=== PATIENT | female | born 1970 | race Caucasian/White ===

== ENCOUNTER 2017-10-04 11:19 | Outpatient (RCR) | payer BC, SELFPAY | END 2017-10-19 23:59 | LOC: NS 11:19 | PROVIDERS: Family Provider Student in an Organized Health Care Education/Training Program; PCP Student in an Organized Health Care Education/Training Program; Visit Provider Nurse Practitioner Adult Health | DX: Z68.28 Body mass index [BMI] 28.0-28.9, adult (principal); Z71.3 Dietary counseling and surveillance | CPT/HCPCS: 97802 ==

== ENCOUNTER 2017-11-06 11:30 | Outpatient (RCR) | payer BC, SELFPAY | END 2017-11-18 23:59 | LOC: NS 11:30 | PROVIDERS: Family Provider Student in an Organized Health Care Education/Training Program; PCP Student in an Organized Health Care Education/Training Program; Visit Provider Nurse Practitioner Adult Health | DX: E66.9 Obesity, unspecified (principal); Z68.28 Body mass index [BMI] 28.0-28.9, adult; Z71.3 Dietary counseling and surveillance | CPT/HCPCS: 97803 ==

== ENCOUNTER 2017-12-11 11:00 | Outpatient (RCR) | payer BC, SELFPAY | END 2017-12-19 23:59 | LOC: NS 11:00 | PROVIDERS: Family Provider Student in an Organized Health Care Education/Training Program; PCP Student in an Organized Health Care Education/Training Program; Visit Provider Nurse Practitioner Adult Health | DX: E66.9 Obesity, unspecified (principal); Z68.28 Body mass index [BMI] 28.0-28.9, adult; Z71.3 Dietary counseling and surveillance | CPT/HCPCS: 97803 ==

== ENCOUNTER 2018-01-16 09:30 | Outpatient (RCR) | payer BC, SELFPAY | END 2018-01-18 23:59 | LOC: NS 09:30 | PROVIDERS: Family Provider Student in an Organized Health Care Education/Training Program; PCP Student in an Organized Health Care Education/Training Program; Visit Provider Nurse Practitioner Adult Health | DX: E66.9 Obesity, unspecified (principal); Z68.28 Body mass index [BMI] 28.0-28.9, adult; Z71.3 Dietary counseling and surveillance | CPT/HCPCS: 97803 ==

== ENCOUNTER 2018-03-08 11:30 | Outpatient (RCR) | payer BC, SELFPAY ==
[2014-05-29 07:29] VITALS: BMI 27.6
== END 2018-03-21 23:59 ==
LOC: NS 11:30
PROVIDERS: Family Provider Student in an Organized Health Care Education/Training Program; PCP Student in an Organized Health Care Education/Training Program; Visit Provider Nurse Practitioner Adult Health
DX: E66.9 Obesity, unspecified (principal); Z68.28 Body mass index [BMI] 28.0-28.9, adult; Z71.3 Dietary counseling and surveillance
CPT/HCPCS: 97803

== ENCOUNTER 2018-04-12 11:30 | Outpatient (RCR) | payer BC, SELFPAY ==
[2014-05-29 07:29] VITALS: BMI 27.6
== END 2018-04-18 23:59 ==
LOC: NS 11:30
PROVIDERS: Family Provider Student in an Organized Health Care Education/Training Program; PCP Student in an Organized Health Care Education/Training Program; Visit Provider Nurse Practitioner Adult Health
DX: E66.9 Obesity, unspecified (principal); Z68.28 Body mass index [BMI] 28.0-28.9, adult; Z71.3 Dietary counseling and surveillance
CPT/HCPCS: 97803

== ENCOUNTER 2018-05-17 10:31 | Outpatient (RCR) | payer BC, SELFPAY ==
[2014-05-29 07:29] VITALS: BMI 27.6
== END 2018-05-17 23:59 | disposition home or self-care (01) ==
LOC: NS 10:31
PROVIDERS: Family Provider Student in an Organized Health Care Education/Training Program; PCP Student in an Organized Health Care Education/Training Program; Visit Provider Nurse Practitioner Adult Health
DX: E66.9 Obesity, unspecified (principal); Z68.28 Body mass index [BMI] 28.0-28.9, adult; Z71.3 Dietary counseling and surveillance
CPT/HCPCS: 97803

== ENCOUNTER → 2021-06-17 | Outpatient (CLI) | payer BC, SELFPAY ==
--- NOTE | 2021-06-17 12:46 | BI_ITS ---
MAMMOGRAPHY - BILATERAL DIAGNOSTIC REASON FOR EXAM: Female, 50 years old. One-week history of a right breast lump. This is located at the 2 o''clock position of the breasts. PERTINENT HISTORY: Mother with breast cancer. TECHNIQUE: Digital bilateral breast kojo (3D mammographic acquisition) in the CC and MLO projections. 2-D mediolateral oblique (MLO) and craniocaudad (CC) views of both breasts were obtained. CAD: Full Field Digital Mammography with Computer Added Detection was performed. COMPARISON: Comparison is made with prior outside examination dated 12/24/2020. FINDINGS: Breast Composition: The breasts are heterogeneously dense, which may obscure small masses. There are no dominant masses or suspicious calcifications. Stable benign-appearing bilateral axillary lymph nodes. No other significant abnormalities are identified. There has been no significant change since the prior study. BI/DIAG MAMM W/CAD, BILAT IMPRESSION: Stable bilateral diagnostic mammogram. With the patient''s history of a palpable lump in the right breast, correlation with ultrasound is recommended. ASSESSMENT CATEGORY: BIRADS Category 0: Incomplete. Need additional imaging evaluation. A letter regarding these results will be sent to the patient by the facility within 30 days. Approximately 10% of breast cancers are not detected by mammography. A normal mammogram should not delay biopsy of a clinically suspicious abnormality. Electronically Signed: Brad Braga MD at 13:59 EDT ,
--- NOTE | 2021-06-17 12:48 | US_ITS ---
STUDY: ULTRASOUND BREAST - RIGHT REASON FOR EXAM: Female, 50 years old. Palpable lump in the right breast. TECHNIQUE: Axial and longitudinal images of the RIGHT breast were performed with a high resolution ultrasound transducer. # OF IMAGES: 19 COMPARISON: Comparison is made with prior mammogram done earlier today. FINDINGS: RIGHT Breast: The upper inner quadrant of the right breast was examined by ultrasound. There is a 4 mm x 4 mm x 4 mm hypoechoic nodule at the 1 o''clock position breast at 3 cm from the nipple. There is evidence of hemorrhage or infection. A similar type of nodule is seen at the 2 o''clock position of the breast at 3 cm from nipple measuring 5 mm x 5 mm x 5 mm. Tissue diagnosis is recommended. US/Breast Limited Unilateral IMPRESSION: Adjacent well-defined hypoechoic nodules as described. Tissue diagnosis is recommended. ASSESSMENT CATEGORY: BIRADS Category 4: Suspicious - Biopsy Should Be Considered. A letter regarding these results will be sent to the patient by the facility within 30 days. Electronically Signed: Brad Braga MD at 14:02 EDT ,
== END | disposition home or self-care (01) ==
PROVIDERS: PCP Student in an Organized Health Care Education/Training Program; Visit Provider Obstetrics & Gynecology
DX: N63.10 Unspecified lump in the right breast, unspecified quadrant (principal)
CPT/HCPCS: 76642; 77062; 77066; G0279

== ENCOUNTER → 2021-06-22 | Outpatient (CLI) | payer BC, SELFPAY ==
--- NOTE | 2021-06-22 | IMM_PTH ---
PATIENT: WENCESLAO GUAJARDO LOC: U#:[id number] AGE/SX: 50/F ROOM: RE06/22/[address]: Dr. Henna Bowden MD : 1970 BED: DIS: 06/22/2021 SPEC #: [id number] RECD: 06/24/21 10:31 STATUS: ADEN REQ #: [id number] MARY: 06/22/21 00:[address]: Henna Bowden DEPT: IMMUNOHISTOCHEMISTRY RECD BY: Shayla Lozano ENTERED: 06/24/21 10:33 SP TYPE: IMMUNO OTHR DR: Dr. Tez Salazar, Tissues: A - Right breast, NOS B - Right breast, NOS Procedures: SMA (add) CK8 (add) MACRO (add) P53 (add) Vimentin (add) Pankeratin (initial) PHYSICIAN & INSTITUTION [place] [address] SPECIMEN INFORMATION: Tissue Source: A ? Right breast 1 o?clock, B - Right breast 2 o?clock Clinical Info: Right breast mass x2 Specimen Number: [id number] A & B CPT code: 84078 x2, 94523 x10 METHODOLOGY: Deparaffinized sections of prefer/formalin-fixed tissue or PAP/DQ stained slides are incubated with monoclonal/polyclonal antibodies/oligonucleotide probes. Localization is made via biotin free immunoperoxidase method. Appropriate controls are performed and reacted as expected. Results on target cell population are indicated in the following table: RESULTS: ANTIBODY / CLONE RESULT Block A AE1-3 (AE1/AE3/PCK26) negative CK8 (57ckmxH65) negative Vimentin (V9) positive Macro (HAM-56) positive Actin (1A4) positive P53 (DO-7) negative Block B AE1-3 (AE1/AE3/PCK26) negative CK8 (17wtbfH00) negative Vimentin (V9) positive Macro (HAM-56) positive Actin (1A4) positive P53 (DO-7) negative These tests were developed and their performance characteristics determined by [facility]. They may not have been cleared or approved by the U.S. Food and Drug Administration. The FDA has determined that such clearance or approval is not necessary. The above immunohistochemical/dualISH markers are ordered and reviewed by the Pathologist. INTERPRETATION: A. Right breast 1 o?clock, core biopsy: Benign breast tissue. B. Right breast 2 o?clock, core biopsy: Benign breast tissue. AM:john 06/27/2021
--- NOTE | 2021-06-22 | BRBX_PTH ---
PATIENT: WENCESLAO GUAJARDO LOC: U#:[id number] AGE/SX: 50/F ROOM: RE06/22/[address]: Dr. Henna Bowden MD : 1970 BED: DIS: 06/22/2021 SPEC #: [id number] RECD: 06/22/21 12:44 STATUS: ADEN VERONICA #: [id number] MARY: 06/22/21 00:[address]: Henna Bowden DEPT: SURGICAL PATHOLOGY RECD BY: Joshua Bender ENTERED: 06/23/21 07:57 SP TYPE: BREAST BX OTHR DR: Dr. Tez Salazar DO Tissues: A - Right breast, NOS B - Right breast, NOS Procedures: Surgery Specimen Level IV HEADER OPERATION: Ultrasound Guided Right Breast Biopsy/Aspiration PRE-OP DIAGNOSIS: Right Breast mass x2 TISSUE SUBMITTED: A - Right Breast 1 o?clock, B ? Right breast 2 o?clock ISCHEMIC TIME: 1 minute FIXATION TIME: 31.5 hours MICROSCOPIC DIAGNOSIS A. Right breast at 1 o?clock, core biopsy: Consistent with organizing fat necrosis. See comment. B. Right breast at 2 o?clock, core biopsy: Consistent with organizing fat necrosis. See comment. AM:john 06/24/2021 COMMENT A & B. Immunohistochemistry ([id number]) supports the above diagnosis. Case has been reviewed in consultation with Dr. Martinez who concurs with the above diagnosis. IDC:SJ MICROSCOPIC DESCRIPTION Slides are reviewed. GROSS DESCRIPTION A - Received in fixative is one container labeled with the patient's name and designated right breast 1 o?clock. The specimen consists of multiple elongated fragments of ro-yellow fibroadipose tissue that in aggregate measure 1.5 x 0.8 x 0.1 cm. The entire specimen is submitted in one cassette. B - Received in fixative is one container labeled with the patient's name and designated right breast 2 o?clock. The specimen consists of multiple elongated fragments of ro-yellow fibroadipose tissue that in aggregate measure 2 x 1.5 x 0.1 cm. The entire specimen is submitted in one cassette. / IVONNE:john 06/23/2021 TC:5 CPT: 92351 x2
--- NOTE | 2021-06-22 11:39 | US_ITS ---
ULTRASOUND GUIDED CORE BIOPSY REASON FOR EXAM: Female, 50 years old. Right breast mass x 2 PERTINENT HISTORY: Drainage only structure at the 1 o''clock position of the breast. COMPARISON: None. TECHNIQUE: (All elements of maximal sterile barrier technique followed, including US elements as applicable) Under direct sonographic guidance, the surgeon performed drainage a nonstatistically cystic structure IMPRESSION: Ultrasound guided core biopsy of a mass in the RIGHT breast at 1 o''clock position of the right breast without complication. Electronically Signed: Brad rBaga MD at 13:11 EDT , ULTRASOUND GUIDED CORE BIOPSY REASON FOR EXAM: Female, 50 years old. right breast mass x 2 PERTINENT HISTORY: Ultrasound guided drainage of the cystic nodule at the 2 o''clock position of the right breast. COMPARISON: Comparison is made with prior study 06/17/2021. TECHNIQUE: (All elements of maximal sterile barrier technique followed, including US elements as applicable) Under direct sonographic guidance, an incision from drainage of the cystic nodule at the 2 o''clock position of the breast. US/US Breast Biopsy 1st Lesion IMPRESSION: Ultrasound guided core biopsy of a mass in the RIGHT breast at the 2 o''clock position of the breast without complication. Electronically Signed: Brad Braga MD at 13:12 EDT ,
--- NOTE | 2021-06-22 12:21 | PCM.OPRPT ---
Report of Operation Date of Procedure: 06/22/21 Pre-Operative Diagnosis: Right breast mass x2 Post-Operative Diagnosis: Same Surgery/Procedure Performed:: Ultrasound-guided right breast biopsy x 2 Surgeon: Henna Bowden Type of Anesthesia: Local Specimen's removed: 1. Right breast mass 1:00 3 cm from nipple, 2. right breast mass 2:00 3 cm from nipple Estimated Blood Loss (mL): < 10 cc Description of Procedure: Procedure: Right ultrasound-guided core biopsy x2 Indications: 50year-old female with cystic right breast lesions with possible acoustic shadowing --given a BI-RADS 4, mammography did show calcified monge. At 1 and 2:00 in the right breast 3 centimeters from the nipple. Risk benefits were discussed the patient and she elected to proceed with ultrasound guided core biopsy with clip placement Description of procedure: Patient was brought into the ultrasound room in the right breast was marked. A timeout was completed verifying correct patient, procedure, site, specially, prior to beginning procedure. The right breast was prepped and draped in usual sterile fashion and using local anesthesia was obtained with 1% lidocaine with epi. Initially a 2:00 was aspirated only clear fluid obtained however that collapsed cyst did appear hypoechoic thus was decided to biopsy both lesions. Lesions done similarly. The lesion was located with the ultrasound. Small incision was made with 11 blade to introduced the mammotome through the skin. Under ultrasound guidance multiple core samples were obtained using then 13-gauge mammotome and sent in formalin for pathology. The mammotome mammostar clip was placed at 2:00 in the [place] dual ultra ribbon clip at 1:00 was then deployed into the biopsy cavity under ultrasound guidance and a picture was taken. There was a evidence of a small hematoma after the 2:00 biopsy pressure was held. Upon completion procedure hemostasis was obtained and a Steri-Strip and OpSite were placed. Patient was then taken to the mammography suite for clip verification. The clip was verified. The patient tolerated the procedure well and was discharged from the breast imaging department good condition. Complications none
== END | disposition home or self-care (01) ==
PROVIDERS: PCP Student in an Organized Health Care Education/Training Program; Visit Provider Surgery
DX: N63.12 Unspecified lump in the right breast, upper inner quadrant (principal)
CPT/HCPCS: 19083; 19084; 88305; 88341; 88342

== ENCOUNTER → 2022-03-08 | Outpatient (CLI) | payer BC, SELFPAY ==
--- NOTE | 2022-03-08 09:25 | US_ITS ---
STUDY: ULTRASOUND BREAST - RIGHT REASON FOR EXAM: Female, 51 years old. Status post right breast biopsy. TECHNIQUE: Axial and longitudinal images of the RIGHT breast were performed with a high resolution ultrasound transducer. # OF IMAGES: 29 COMPARISON: Comparison is made with prior examination 06/17/2021. FINDINGS: RIGHT Breast: The upper inner quadrant of the right breast was examined with ultrasound. No cysts are seen at this time. US/Breast Limited Unilateral IMPRESSION: No cysts are seen at this time. ASSESSMENT CATEGORY: BIRADS Category 1: Negative. A letter regarding these results will be sent to the patient by the facility within 30 days. Electronically Signed: Brad Braga MD at 14:18 EST ,
== END | disposition home or self-care (01) ==
LOC: OPUS 09:24
PROVIDERS: PCP Student in an Organized Health Care Education/Training Program; Visit Provider Surgery
DX: Z79.890 Hormone replacement therapy (principal); Z92.89 Personal history of other medical treatment; Z98.890 Other specified postprocedural states; R92.8 Other abnormal and inconclusive findings on diagnostic imaging of breast
CPT/HCPCS: 76642

== ENCOUNTER → 2023-07-12 | Outpatient (CLI) | payer BC, SELFPAY ==
--- NOTE | 2023-07-12 12:03 | BI_ITS ---
MAMMOGRAPHY - BILATERAL SCREENING 3-D TOMOSYNTHESIS REASON FOR EXAM: Female, 52 years old. SCREENING PERTINENT HISTORY: No significant family history. TECHNIQUE: 2-D mammograms and 3-D Tomosynthesis of the breast (s) were performed. CAD was performed. COMPARISON: 06/17/2021 FINDINGS: The breast composition is heterogeneously dense that can obscure small breast masses. Scattered benign calcifications are seen. No dense spiculated masses or suspicious microcalcifications are identified. No architectural distortion is identified. There is no skin thickening or retraction. There has been no significant change since the prior study. BI/SCRN MAMM (CAD)W/ERIC BILAT IMPRESSION: No mammographic signs of malignancy. Routine yearly mammograms recommended. ASSESSMENT CATEGORY: BIRADS Category 1: Negative. A letter regarding these results will be sent to the patient by the facility within 30 days. FOLLOW UP RECOMMENDATION: Yearly follow up mammogram recommended. (A) Approximately 10% of breast cancers are not detected by mammography. A normal mammogram should not delay biopsy of a clinically suspicious abnormality. Electronically Signed: Jose Elias Rock MD at 17:27 EDT ,
== END | disposition home or self-care (01) ==
LOC: OPBI 12:01
PROVIDERS: PCP Student in an Organized Health Care Education/Training Program; Visit Provider Student in an Organized Health Care Education/Training Program
DX: Z12.31 Encounter for screening mammogram for malignant neoplasm of breast (principal)
CPT/HCPCS: 77063; 77067

== ENCOUNTER 2023-10-18 12:41 | Emergency (ER) | payer BC, SELFPAY ==
[2023-10-18 12:42] VITALS: BP 159/96; PULSE 92; RESP 16; TEMP 36; O2SAT 99; BMI 29.6
--- NOTE | 2023-10-18 13:28 | CT_ITS ---
STUDY: CT ABDOMEN AND PELVIS WITHOUT CONTRAST REASON FOR EXAM: Female, 53 years old. 2 day history of left flank pain. Frequency. Dysuria. History of kidney stones. RADIATION DOSAGE (If Supplied By Facility): CTDIvol = ( 9.75 ) mGy, DLP = ( 523.61 ) mGycm TECHNIQUE: Transaxial images were obtained from the dome of the diaphragm to the symphysis pubis without oral contrast, and without intravenous contrast. Sagittal and coronal images were reconstructed. Individualized dose optimization techniques were used for this CT. COMPARISON: None. FINDINGS: The visualized lung bases are unremarkable. Mild degree of her coronary artery calcification. There is decreased attenuation of the liver consistent with steatosis. There are surgical clips in the gallbladder fossa consistent with a prior cholecystectomy. Normal spleen. Normal pancreas. Normal bilateral adrenal glands. Small bilateral nonobstructive intrarenal calculi. Mild degree of a left hydronephrosis and hydroureter due to a 5.1 mm calculus in the proximal portion of the left ureter. Left perinephric and periureteric stranding. There is a small hiatal hernia. Normal small intestine. Normal colon. The appendix is visualized and appears normal. There is scattered atherosclerotic calcification of the abdominal aorta, without a demonstrated aneurysm. Normal inferior vena cava. Normal retroperitoneum. A 2 mm calculus is seen in the base of the bladder on the left side suggestive of a recently passed calculus. IUD is seen within the uterus. There is a small umbilical hernia containing fat. Small bilateral inguinal hernias containing fat. Normal osseous structures. CT/Abdomen/Pelvis without Cont IMPRESSION: Small bilateral intrarenal calculi. Left hydronephrosis and hydroureter due to a 5.1 mm within the proximal portion of the left ureter. Left perinephric and periureteric stranding. Fatty infiltration of the liver. Findings suggestive of recently passed 2 mm calculus at the base of the bladder on the left side. Electronically Signed: Brad Braga MD at 14:47 EDT ,
--- NOTE | 2023-10-18 13:28 | ED.VIS.GI ---
HPI HPI - GI History of Present Illness Chief Complaint: Flank Pain Narrative Narrative: 53-year-old female presents with left flank pain/low back pain, nausea, vomiting, and diarrhea since Sunday evening. She states her pain began Sunday, approximately 2 days ago with left low back pain. She experienced nausea and vomiting without any blood in her emesis. She states she powered through the next day on Sunday, yesterday, but has constant left-sided low back pain with questionable radiation. This morning she had a normal bowel movement and loose stool. She denies any fevers or chills. While she denies any dysuria or hematuria, she states that the opening to her urethra feels pressure like she has to go to urinate. No exacerbating or alleviating factors. She does have menstrual periods because she has a Mirena IUD. [facility] Medical History Kidney stone Home Medications ?Medication ?Instructions ?Recorded ?Last Taken ?Type simvastatin 40 mg tablet 40 mg PO QHS 01/31/14 04/19/14 22:00 History triamterene 37.5 1 tab PO DAILY 05/25/14 Unknown History mg-hydrochlorothiazide 25 mg tablet biotin 1 mg capsule 1 mg PO DAILY 06/21/21 Unknown History cholecalciferol (vitamin D3) 50 50 mcg PO DAILY 06/21/21 Unknown History mcg (2,000 unit) capsule multivitamin 1 tab PO DAILY 06/21/21 Unknown History ubidecarenone-omega 3-vit E 25 1 cap PO DAILY 06/21/21 Unknown History mg-150 (90-60) mg-200 unit capsule (Co T-34-Plkmoae E-Fish Oil) ketorolac 10 mg tablet 10 mg PO TID PRN pain 5 days #15 10/18/23 Unknown Rx tabs ondansetron HCl 4 mg tablet 4 mg PO Q8H PRN nausea and 10/18/23 Unknown Rx vomiting 5 days #15 tabs oxycodone-acetaminophen 5 mg-325 1 tab PO Q6H PRN pain 3 days #12 10/18/23 Unknown Rx mg tablet (Percocet) tabs tamsulosin 0.4 mg capsule (Flomax) 0.4 mg PO DAILY #10 caps 10/18/23 Unknown Rx Allergy/AdvReac Type Severity Reaction Status Date / Time No Known Allergies Allergy Verified 10/18/23 12:44 Family History Father Diabetes Heart disease Hypertension High cholesterol Mother High cholesterol Hypertension Surgical History S/P breast biopsy, right History of tubal ligation History of cholecystectomy Social History Smoking Status: Unknown if ever smoked alcohol intake: never substance use type: does not use ROS ROS ED ROS Narrative Constitutional: No fever, no chills. HEENT: No sore throat. No neck pain. No loss of vision. No rhinorrhea. Cardiovascular: No chest pain. No palpitations. No pedal edema. Respiratory: No cough, no shortness of breath. Abdominal: No abdominal pain. Positive nausea and vomiting-resolved. Positive loose stool today. Genitourinary: No dysuria, but feels pressure at urethral opening. No hematuria. Positive left low back pain/flank pain. Musculoskeletal: No myalgias. No arthralgias. Neurologic: No headaches. No dizziness. No lightheadedness. Skin: No rash. No change in color. Psychiatric: No depression. No anxiety. EXAM Physical Exam Narrative Exam Narrative: Afebrile. Vital signs noted. HEENT: Normocephalic. Atraumatic. PERRL, EOMI. Neck soft and supple. No point tenderness or step off. Cardiovascular: Regular rate and rhythm. No murmurs, rubs, or gallops appreciated. Respiratory: No tachypnea. Lungs clear to auscultation bilaterally. Gastrointestinal: Abdomen soft, nontender, with normoactive bowel sounds. No rebound or guarding. No CVA tenderness to percussion, left. Neurological: Awake. Alert. Nonfocal, nonlateralizing. Skin: No rash. Normal color. No pallor. Musculoskeletal: No pedal edema. Full range of motion extremities. Const Vital Signs: 10/18/23 12:42 10/18/23 14:37 Temperature 96.8 F L 96.3 F L Temperature Source Temporal Temporal Pulse Rate 92 70 Respiratory Rate 16 16 Blood Pressure 159/96 H 128/76 H Blood Pressure Mean 117 93 Pulse Ox 99 99 Oxygen Delivery Method Room Air Room Air MDM MDM MDM Narrative Medical decision making narrative: Differential diagnosis includes but not limited to pyelonephritis versus musculoskeletal back pain versus ureterolithiasis. I have low suspicion for diverticulitis or colitis based on her history and physical. She was administered morphine, ondansetron, and a liter of normal saline 1 L intravenously. I do feel CT imaging is indicated. Also, I have low suspicion for ectopic as she has not had menses, but serum will be obtained for imaging purposes. I reviewed her laboratory work and she has slight elevation of her white count of 13.1 which I think is nonspecific, hemoglobin 15.3 which may be hemoconcentration, hematocrit 45.7 with platelet count normal at 316. Potassium slightly low at 3.3 with BUN normal at 11 and creatinine 0.81. Serum test is negative. Urinalysis negative for infection negative ketones. I do not feel antibiotics are indicated. Review of the CT of the abdomen and pelvis without contrast does show a 5.1 mm stone in the left proximal ureter causing hydronephrosis. It does look like she may have passed a 2 mm stone because its at the base of the bladder as well. She had improvement after morphine and ondansetron. She had slight return of pain so she was administered another dose of morphine and ondansetron along with Toradol. At this point in time, I do not feel that she requires admission or antibiotics. Urine culture was sent because of the elevated white count. She will follow-up with urology. I wrote her prescriptions for Percocet, Flomax, Toradol, and ondansetron. Strict return instructions were reviewed and she was told of the possibility of sepsis with infected urine behind the kidney stone/ureteral stone. She should follow-up with urology in the next week. She acknowledges an understanding. Disposition is discharged in stable condition. History & Record Review Discussion w/independent historian: Patient Lab Data Attestation: I reviewed the patient's lab results. Labs: Laboratory Results - last 24 hr 10/18/23 10/18/23 13:00 13:35 WBC 13.1 H RBC 5.30 Hgb 15.3 H Hct 45.7 MCV 86.2 MCH 28.9 MCHC 33.5 RDW Std Deviation 39.4 RDW Coeff of Abrahan 12.7 Plt Count 316 MPV 10.4 Immature Gran % (Auto) 0.300 Neut % (Auto) 62.1 Lymph % (Auto) 29.4 [place] % (Auto) 6.0 Eos % (Auto) 1.4 Baso % (Auto) 0.8 Absolute Neuts (auto) 8.2 H Absolute Lymphs (auto) 3.86 Nucleated RBC % 0 Sodium 136 Potassium 3.3 L Chloride 101 Carbon Dioxide 25.0 Anion Gap 10 BUN 11 Creatinine 0.81 Estim Creat Clear Calc 88.31 Est GFR (MDRD) Af Amer 95 Est GFR (MDRD) Non-Af 79 BUN/Creatinine Ratio 13.5 Glucose 104 Calcium 10.6 H Serum , Qual NEGATIVE Urine Color Yellow Urine Clarity Clear Urine pH 7.0 Ur Specific [place] 1.010 Urine Protein 15 H Urine Glucose (UA) Normal Urine Ketones Negative Urine Occult Blood 50 H Urine Nitrite Negative Urine Bilirubin Negative Urine Urobilinogen Normal Ur Leukocyte Esterase Negative Urine RBC 0-5 SEEN Urine WBC 0 SEEN Ur Squamous Epith Cells 0 SEEN Urine Bacteria 0 SEEN Urine Mucus 0 SEEN Radiography Diagnostic Testing: Clinical Impression(s) from Imaging Studies Abdomen/Pelvis CT 10/18/23 13:28 IMPRESSION: Small bilateral intrarenal calculi. Left hydronephrosis and hydroureter due to a 5.1 mm within the proximal portion of the left ureter. Left perinephric and periureteric stranding. Fatty infiltration of the liver. Findings suggestive of recently passed 2 mm calculus at the base of the bladder on the left side. Electronically Signed: Brad Braga MD at 14:47 EDT , Discharge Plan Triage Chief Complaint: Flank Pain ED Provider: Eliazar Jones Dx/Rx/DC Orders Clinical Impression: Flank pain, acute, Ureteral calculus, left Instructions: ED Kidney Stone with Pain Prescriptions: New oxycodone-acetaminophen [Percocet] 5-325 mg tablet 1 tab PO Q6H PRN (Reason: pain) 3 Days Qty: 12 0RF ketorolac 10 mg tablet 10 mg PO TID PRN (Reason: pain) 5 Days Qty: 15 0RF Rx Instructions: maximum total duration of 5 days from all oral, intranasal, or parenteral formulations tamsulosin [Flomax] 0.4 mg capsule 0.4 mg PO DAILY Qty: 10 0RF ondansetron HCl 4 mg tablet 4 mg PO Q8H PRN (Reason: nausea and vomiting) 5 Days Qty: 15 0RF No Action Co [id number]-Tyszuvh E-Fish Oil 25-150-200 mg-mg-unit capsule 1 cap PO DAILY cholecalciferol (vitamin D3) 50 mcg (2,000 unit) capsule 50 mcg PO DAILY multivitamin Tablet 1 tab PO DAILY biotin 1 mg capsule 1 mg PO DAILY simvastatin 40 MG tablet 40 mg PO QHS Patient Comments: cholestrol triamterene-hydrochlorothiazid 1 EACH tablet 1 tab PO DAILY Patient Comments: Primary Care Provider: Tez Salazar Referrals: Ree oLpez MD [Med Staff - Active Staff] - 3-5 Days Tez Salazar DO [Primary Care Provider] - Nam Chan MD [Med Staff - Active Staff] - 3-5 Days Activity Restrictions/Additional Instructions: Return with fever, increased pain, inability to take medications, new or worsening symptoms. Follow-up with urology within the next week. Print Language: [place] Disposition Disposition: Home, Self Care
[2023-10-18] MEDS: Ondansetron 4 MG/2 ML Vial IV ×2 (13:43→15:21)
[2023-10-18] MEDS: Morphine 4 MG/ML Syringe IV ×2 (13:43→15:25)
[2023-10-18 13:50] LABS: Bacteria 0 SEEN /hpf (None Seen); Mucous, Urine 0 SEEN /hpf (<or=2+); Squamous Epithelial Cells - UA 0 SEEN /hpf (5-10); White Blood Cells 0 SEEN /hpf (0-5)
[2023-10-18 13:52] LABS: Absolute Lymphocyte Count 3.86 X10^3/uL (0.83-4.51); Absolute Neutrophil Count 8.2 X10^3/uL (2.0-7.7); Basophil% 0.8 % (0-1); Eosinophil# 0.19 X10^3/uL; Eosinophils% 1.4 % (0-5); Hematocrit 45.7 % (37-47); Hemoglobin 15.3 g/dL (12.0-15.0); Lymphocyte # 3.86 X10^3/ul (0.83-4.51); Lymphocyte % 29.4 % (19-41); Mean Corp Hgb Conc 33.5 g/dL (32-36); Mean Corpuscular Hgb 28.9 pg (27.0-32.0); Mean Corpuscular Volume 86.2 fL (81-99); Mean Platelet Vol. 10.4 fl (6.2-12.0); Monocyte# 0.79 X10^3/uL; NRBC Flagged by Analyzer 0 % (0-5); Neutrophil # 8.16 X10^3/uL (2.7-7.7); Neutrophil % 62.1 % (47-70); Platelet Count 316 K/mm3 (150-450); RBC Distribution Width CV 12.7 % (11.6-14.6); RBC Distribution Width SD 39.4 fl (35.1-43.9); White Blood Count 13.1 K/mm3 (4.4-11.0)
[2023-10-18 14:00] LABS: Color, Urine Yellow (Yellow); Glucose, Dipstick Normal (Normal); Ketone-Dipstick Negative (Negative); Leukocyte Esterase-Dipstick Negative /ul (Negative); Nitrite-Dipstick Negative (Negative); Occult Blood-Urine 50 /ul (Negative); Protein-Dipstick 15 mg/dl (Negative); Urine Bilirubin Dipstick Negative (Negative); Urine Clarity Clear (Clear); Urine Urobilinogen Normal (Normal)
[2023-10-18 14:04] LABS: Anion Gap 10 (5-15); BUN 11 mg/dL (7-18); BUN/Creat Ratio 13.5 RATIO (10-20); Calcium,Total 10.6 mg/dL (8.5-10.1); Chloride 101 mmol/L (98-107); Creatinine, Serum 0.81 mg/dL (0.55-1.02); EST Glomerular Filtration Rate 79 mL/min (>60); Est Glom Filt Rate - Afr Amer 95 mL/min (>60); Estimated Creatinine Clearance 88.31 ml/min; Glucose 104 mg/dL (74-106); Internal QC Validated? YES +Cl - CLEAR BKGD; Potassium 3.3 mmol/L (3.5-5.1); Pregnancy, Serum, hCG Quali. NEGATIVE Negative; Sodium Level 136 mmol/L (136-145)
[2023-10-18 14:12] LABS: Red Blood Cells-Urine 0-5 SEEN /hpf (0-5)
[2023-10-18 14:37] VITALS: BP 128/76; PULSE 70; RESP 16; TEMP 35.7; O2SAT 99
[2023-10-18] MEDS: Ketorolac 30 MG/ML Syringe IV (15:24)
[2023-10-18 15:47] VITALS: BP 154/88; PULSE 88; RESP 16; TEMP 36.8; O2SAT 99
== END 2023-10-18 15:55 | disposition home or self-care (01) ==
PROVIDERS: Emergency Provider Emergency Medicine; PCP Student in an Organized Health Care Education/Training Program; Visit Provider Emergency Medicine
DX: N13.2 Hydronephrosis with renal and ureteral calculous obstruction (principal); R10.9 Unspecified abdominal pain; Z98.51 Tubal ligation status; Z90.49 Acquired absence of other specified parts of digestive tract
CPT/HCPCS: 74176; 80048; 81001; 84703; 85025; 87086; 96374; 96375; 96376; 99283; J7050; A4216; J2405

== ENCOUNTER → 2023-10-29 | Outpatient (CLI) | payer BC, SELFPAY ==
--- NOTE | 2023-10-29 | CALC_PTH ---
PATIENT: WENCESLAO GUAJARDO LOC: [facility] U#:[id number] AGE/SX: 53/F ROOM: RE10/29/[address]: Dr. Nam Chan MD : 1970 BED: DIS: 10/29/2023 SPEC #: [id number] RECD: 10/29/23 14:52 STATUS: ADEN REEvan #: [id number] MARY: 10/29/23 00:[address]: Nam Chan DEPT: SURGICAL PATHOLOGY RECD BY: Joshua Bender ENTERED: 10/30/23 10:15 SP TYPE: Calculi OTHR DR: Dr. Tez Salazar, [facility] Tissues: CALCULI Procedures: Surgery Specimen Level I HEADER OPERATION: Left ureteroscopy with lithotripsy PRE-OP DIAGNOSIS: Calculus of ureter TISSUE SUBMITTED: Renal calculi GROSS DIAGNOSIS A fragment of stone, clinically renal calculus (gross only). IVONNE/ 10/30/2023 COMMENT The calculus is submitted in its entirety for chemical stone analysis. The results from this study will be reported separately. GROSS DESCRIPTION Received without fixative labeled with the patient's name and designated renal calculi. The specimen consists of a fragment of ro-light brown stone measuring 0.3 x 0.2 x 0.1 cm. The entire specimen is submitted for stone analysis. IVONNE/ 10/30/2023 CPT: 78482
[2023-11-09 01:07] LABS: Ca Oxalate, Dihydrate 20 % (.); Ca Oxalate, Monohydrate 75 % (.); Calcium Phosphate (hydroxyl) 5 % (.); Size 2x2 mm (.); Source Kidney (.)
== END | disposition home or self-care (01) ==
LOC: LABSPEC 15:01
PROVIDERS: PCP Student in an Organized Health Care Education/Training Program; Referring Provider Urology; Visit Provider Urology
DX: N20.1 Calculus of ureter (principal)
CPT/HCPCS: 82360; 88300

== ENCOUNTER 2023-11-02 09:25 | Emergency (ER) | payer BC, SELFPAY ==
[2023-11-02] VITALS (9 sets, daily range): BP systolic 129–192; BP diastolic 77–119; PULSE 80–106; RESP 12–22; TEMP 36.3–36.8; O2SAT 94–100
--- NOTE | 2023-11-02 09:32 | EKG12_ITS ---
Test Reason : SOB Blood Pressure : / mmHG Vent. Rate : 091 BPM Atrial Rate : 091 BPM P-R Int : 156 ms QRS Dur : 086 ms QT Int : 382 ms P-R-T Axes : 060 024 039 degrees QTc Int : 469 ms Normal sinus rhythm Nonspecific ST abnormality Abnormal ECG Confirmed by Mohit Young ([id number]), news videotape editor BRAVO OQUENDO ([id number]) on 11/05/2023 11:17:50 AM Referred By: Confirmed By:Mohit Young
--- NOTE | 2023-11-02 09:49 | RAD_ITS ---
STUDY: X-RAY CHEST REASON FOR EXAM: Female, 53 years old. Sudden onset of shortness of breath. TECHNIQUE: PA and lateral views of the chest. COMPARISON: Comparison is made with prior study of May 27, 2014. FINDINGS: The lungs are clear and expanded. Thickening of the lateral aspect of the left major fissure suggestive of a possible linear scar. There is no demonstrated pleural abnormality. Normal size heart. There are small calcified left hilar lymph nodes. Normal visualized pulmonary arteries. There is atherosclerotic calcification of the aortic arch with tortuosity. Normal visualized thoracic spine. Normal visualized ribs, clavicles, and shoulders. There is no demonstrated abnormality of the visualized soft tissue structures of the upper abdomen. RAD/Chest PA and Lateral IMPRESSION: No acute abnormality is seen. Electronically Signed: Brad Braga MD at 10:07 EDT ,
--- NOTE | 2023-11-02 09:56 | EX.ED.DYSGE1 ---
HPI History of Present Illness Chief Complaint: Shortness of Breath Narrative Narrative: Patient is a 53-year-old female past medical history of hypertension, hypercholesterolemia, kidney stones with recent lithotripsy who presents to the [facility] part with chief complaint of shortness of breath. States that in the middle the night she woke up and noted that she had significant difficulty breathing. States that if she moves or talks a lot she feels like she is having difficulty catching her breath. Patient states that she has been compliant with her medications. Denies any recent sick contacts denies any recent travels. Denies any history of blood clots. [facility] Medical History Kidney stone Home Medications ?Medication ?Instructions ?Recorded ?Last Taken ?Type simvastatin 40 mg tablet 40 mg PO QHS 01/31/14 04/19/14 22:00 History triamterene 37.5 1 tab PO DAILY 05/25/14 Unknown History mg-hydrochlorothiazide 25 mg tablet biotin 1 mg capsule 1 mg PO DAILY 06/21/21 Unknown History cholecalciferol (vitamin D3) 50 50 mcg PO DAILY 06/21/21 Unknown History mcg (2,000 unit) capsule multivitamin 1 tab PO DAILY 06/21/21 Unknown History ubidecarenone-omega 3-vit E 25 1 cap PO DAILY 06/21/21 Unknown History mg-150 (90-60) mg-200 unit capsule (Co [id number] E-Fish Oil) ketorolac 10 mg tablet 10 mg PO TID PRN pain 5 days #15 10/18/23 Unknown Rx tabs ondansetron HCl 4 mg tablet 4 mg PO Q8H PRN nausea and 10/18/23 Unknown Rx vomiting 5 days #15 tabs oxycodone-acetaminophen 5 mg-325 1 tab PO Q6H PRN pain 3 days #12 10/18/23 Unknown Rx mg tablet (Percocet) tabs tamsulosin 0.4 mg capsule (Flomax) 0.4 mg PO DAILY #10 caps 10/18/23 Unknown Rx pantoprazole 40 mg tablet,delayed 40 mg PO DAILY 30 days #30 tabs 11/02/23 Unknown Rx release Allergy/AdvReac Type Severity Reaction Status Date / Time No Known Allergies Allergy Verified 11/02/23 09:37 Family History Father Diabetes Heart disease Hypertension High cholesterol Mother High cholesterol Hypertension Surgical History S/P breast biopsy, right History of tubal ligation History of cholecystectomy Social History Smoking Status: Unknown if ever smoked alcohol intake: never substance use type: does not use ROS ROS ED ROS Narrative Constitutional: Denies any fevers, chills, headaches, lightness, dizziness Cardiovascular: Denies chest pain or palpitations Respiratory: Complains of shortness of breath as noted above and cough Abdomen: Denies abdominal pain nausea vomit diarrhea : Denies any urinary symptoms Neurological: Denies numbness, weakness, tingling Musculoskeletal: Denies back pain Skin: Denies rashes or lesions EXAM Physical Exam Narrative Exam Narrative: General: Patient lying in bed did appear to be uncomfortable Head: Atraumatic, normocephalic Eyes, ears, nose, throat: PERRL bilateral, EOMI bilateral, no conjunctival injection noted, posterior pharynx without any erythema, uvula midline, no sublingual swelling Neck: Soft, supple, trachea midline Cardiovascular: Patient tachycardic with a regular rhythm no murmurs gallops rubs noted Respiratory: Clear to auscultation bilaterally no rales rhonchi wheeze noted Abdomen: Soft, nondistended, nontender to palpation bowel sounds present x 4 Extremities: +5/5 strength noted in the bilateral upper and lower extremities, no pedal edema no exam, radial pulses +2/4 in the bilateral per extremities Neurological: Patient following commands knew that she was at [facility] year is 2023 Skin: Warm, dry, tact Const Vital Signs: 11/02/23 09:26 11/02/23 09:28 11/02/23 09:32 Temperature 97.6 F L 97.4 F L Temperature Source Temporal Temporal Pulse Rate 106 H 94 Respiratory Rate 22 H 15 Respiratory Effort Respiratory Depth Respiratory Pattern Blood Pressure 192/119 H 191/99 H Blood Pressure Mean 143 129 Pulse Ox 94 99 98 Oxygen Delivery Method Room Air Room Air Room Air 11/02/23 09:36 11/02/23 10:28 11/02/23 11:25 Temperature 98.3 F Temperature Source Oral Pulse Rate 86 80 Respiratory Rate 14 12 Respiratory Effort Short of Breath Respiratory Depth Normal Respiratory Pattern Normal Blood Pressure 161/92 H 132/89 H Blood Pressure Mean 115 103 Pulse Ox 98 97 Oxygen Delivery Method Room Air Room Air Room Air 11/02/23 13:11 11/02/23 15:00 Temperature Temperature Source Pulse Rate 80 81 Respiratory Rate 18 16 Respiratory Effort Respiratory Depth Respiratory Pattern Blood Pressure 134/84 H 134/77 H Blood Pressure Mean 100 96 Pulse Ox 98 98 Oxygen Delivery Method Room Air Room Air MDM MDM MDM Narrative Medical decision making narrative: Patient is a 53-year-old female who presented to the [facility] part with a chief complaint of shortness of breath, cough not feeling well. Patient will have a workup performed here on the differential diagnose includes but not limited to ACS, flash pulmonary edema, hypertensive emergency, upper respiratory infection second viral etiology. Once workup is obtained reviewed she will be reevaluated. Patient's CBC reviewed showed a leukocytosis of 12,000, hemoglobin of 13.8, plate count normal at 309. Patient's sodium normal 139, potassium was 3.3, creatinine was noted be normal at 0.74. Patient will be given 40 mill equivalents of oral potassium replacement for she leaves, troponin normal at 5, delta troponin obtained normal at 4 as well. Patient's EKG reviewed showed normal sinus rhythm with a rate of 91 bpm. Patient's BMP normal at 15.6, TSH normal at 2.19. Patient's chest x-ray showed no acute abnormality noted. I did add on a D-dimer as the patient did have tachycardia and tachypnea noted this was reviewed and showed mild posterior pleural thickening with interstitial thickening and edema of the bilateral lobes likely due to pneumonitis/inflammation no focal consolidation present no nodules or masses noted no pleural effusions noted. No evidence for PE or arterial dissection. Reevaluation the patient she states that she has a burning sensation in her throat still notes that she still feels about the same. Did give her GI cocktail and reevaluated her shortly after this she states that she feels much better. She ambulated here in the emergency department states that she felt fine. Patient would like to go home at this point time. She will be given a prescription for Protonix she was advised pick this up. She was encouraged to follow-up with her primary care physician and return with worsening symptoms or other concerns. All question concerns answered discharged home in stable condition Lab Data Labs: Laboratory Results - last 24 hr 11/02/23 11/02/23 11/02/23 09:50 10:25 10:35 WBC 12.1 H RBC 4.69 Hgb 13.8 Hct 41.4 MCV 88.3 MCH 29.4 MCHC 33.3 RDW Std Deviation 42.5 RDW Coeff of Abrahan 13.2 Plt Count 309 MPV 9.9 Immature Gran % (Auto) 0.200 Neut % (Auto) 73.2 H Lymph % (Auto) 18.4 L [place] % (Auto) 6.3 Eos % (Auto) 1.4 Baso % (Auto) 0.5 Absolute Neuts (auto) 8.9 H Absolute Lymphs (auto) 2.23 Nucleated RBC % 0 D-Dimer Quant (PE/DVT) Cancelled Sodium 139 Potassium 3.3 L Chloride 106 Carbon Dioxide 25.0 Anion Gap 8 BUN 12 Creatinine 0.74 Estim Creat Clear Calc 97.43 Est GFR (MDRD) Af Amer 106 Est GFR (MDRD) Non-Af 88 BUN/Creatinine Ratio 16.3 Glucose 125 H Calcium 10.0 Troponin I High Sens 5 B-Natriuretic Peptide 15.6 TSH 2.190 11/02/23 12:12 WBC RBC Hgb Hct MCV MCH MCHC RDW Std Deviation RDW Coeff of Abrahan Plt Count MPV Immature Gran % (Auto) Neut % (Auto) Lymph % (Auto) [place] % (Auto) Eos % (Auto) Baso % (Auto) Absolute Neuts (auto) Absolute Lymphs (auto) Nucleated RBC % D-Dimer Quant (PE/DVT) 0.62 H* Sodium Potassium Chloride Carbon Dioxide Anion Gap BUN Creatinine Estim Creat Clear Calc Est GFR (MDRD) Af Amer Est GFR (MDRD) Non-Af BUN/Creatinine Ratio Glucose Calcium Troponin I High Sens 4 B-Natriuretic Peptide TSH Radiography Diagnostic Testing: Clinical Impression(s) from Imaging Studies Chest X-Ray 11/02/23 09:49 IMPRESSION: No acute abnormality is seen. Electronically Signed: Brad Braga MD at 10:07 EDT , Chest CTA 11/02/23 13:11 IMPRESSION: 1. Mild posterior pleural thickening with interstitial thickening and edema of the bilateral lower lobes likely due to pneumonitis/inflammation. No focal consolidation is present. No nodules or masses are seen. No pleural effusion is present. Mild fibrotic scarring is also present in the lung bases. Normal trachea and bilateral mainstem bronchi. No pathologic lymphadenopathy is present. 2. Negative CTA chest examination, without a demonstrated pulmonary embolism or arterial dissection. Electronically Signed: Shlomo Cason MD at 16:00 EDT Reading Location ID and State: [address] [place] [address] , Service support , Discharge Plan Triage Chief Complaint: Shortness of Breath ED Provider: Andrea Che Dx/Rx/DC Orders Clinical Impression: Cough, GERD (gastroesophageal reflux disease) Prescriptions: New pantoprazole 40 mg tablet,delayed release (DR/EC) 40 mg PO DAILY 30 Days Qty: 30 0RF No Action Co [id number] E-Fish Oil 25-150-200 mg-mg-unit capsule 1 cap PO DAILY cholecalciferol (vitamin D3) 50 mcg (2,000 unit) capsule 50 mcg PO DAILY multivitamin Tablet 1 tab PO DAILY biotin 1 mg capsule 1 mg PO DAILY simvastatin 40 MG tablet 40 mg PO QHS Patient Comments: cholestrol triamterene-hydrochlorothiazid 1 EACH tablet 1 tab PO DAILY Patient Comments: oxycodone-acetaminophen [Percocet] 5-325 mg tablet 1 tab PO Q6H PRN (Reason: pain) 3 Days Qty: 12 0RF ketorolac 10 mg tablet 10 mg PO TID PRN (Reason: pain) 5 Days Qty: 15 0RF Rx Instructions: maximum total duration of 5 days from all oral, intranasal, or parenteral formulations tamsulosin [Flomax] 0.4 mg capsule 0.4 mg PO DAILY Qty: 10 0RF ondansetron HCl 4 mg tablet 4 mg PO Q8H PRN (Reason: nausea and vomiting) 5 Days Qty: 15 0RF Primary Care Provider: Tez Salazar Referrals: Tez Salazar DO [Primary Care Provider] - Activity Restrictions/Additional Instructions: Follow-up with your primary care physician outpatient setting. Return for worsening symptoms or any other concerns. Take the Protonix as prescribed. Print Language: Barbadian Disposition Disposition: Home, Self Care
[2023-11-02] MEDS: cloNIDine HCl 0.1 MG Tablet PO (10:18)
[2023-11-02 10:20] LABS: Anion Gap 8 (5-15); BUN 12 mg/dL (7-18); BUN/Creat Ratio 16.3 RATIO (10-20); Chloride 106 mmol/L (98-107); Creatinine, Serum 0.74 mg/dL (0.55-1.02); EST Glomerular Filtration Rate 88 mL/min (>60); Est Glom Filt Rate - Afr Amer 106 mL/min (>60); Estimated Creatinine Clearance 97.43 ml/min; Glucose 125 mg/dL (74-106); Potassium 3.3 mmol/L (3.5-5.1); Sodium Level 139 mmol/L (136-145); Troponin-I HS (w/2H Reflex) 5 pg/mL (3.0-54.0)
[2023-11-02 10:36] LABS: Absolute Lymphocyte Count 2.23 X10^3/uL (0.83-4.51); Absolute Neutrophil Count 8.9 X10^3/uL (2.0-7.7); Basophil# 0.06 X10^3/uL; Basophil% 0.5 % (0-1); Eosinophil# 0.17 X10^3/uL; Eosinophils% 1.4 % (0-5); Hematocrit 41.4 % (37-47); Hemoglobin 13.8 g/dL (12.0-15.0); Lymphocyte # 2.23 X10^3/ul (0.83-4.51); Lymphocyte % 18.4 % (19-41); Mean Corp Hgb Conc 33.3 g/dL (32-36); Mean Corpuscular Hgb 29.4 pg (27.0-32.0); Mean Corpuscular Volume 88.3 fL (81-99); Mean Platelet Vol. 9.9 fl (6.2-12.0); Monocyte# 0.76 X10^3/uL; Monocyte% 6.3 % (0-10); NRBC Flagged by Analyzer 0 % (0-5); Neutrophil # 8.88 X10^3/uL (2.7-7.7); Neutrophil % 73.2 % (47-70); Platelet Count 309 K/mm3 (150-450); RBC Distribution Width CV 13.2 % (11.6-14.6); RBC Distribution Width SD 42.5 fl (35.1-43.9); Red Blood Count 4.69 M/mm3 (4.2-5.4); White Blood Count 12.1 K/mm3 (4.4-11.0)
[2023-11-02 11:54] LABS: Reflex Troponin-HS? (from REC) Y
[2023-11-02 12:45] LABS: Troponin-I HS 4 pg/mL (3.0-54.0)
[2023-11-02 12:55] LABS: D-Dimer Quantitative (DVT/PE) 0.62 FEU/ug/m (0.27-0.49)
--- NOTE | 2023-11-02 13:11 | CT_ITS ---
STUDY: CTA CHEST REASON FOR EXAM: Female, 53 years old. sob, RADIATION DOSAGE (If Supplied By Facility): CTDIvol = ( 11.08 ) mGy, DLP = ( 435.96 ) mGycm TECHNIQUE: The examination was performed with the intravenous administration of IV 100mL Isovue-370. Post-processing of the angiographic images was performed, with multiplanar reformation and 3D reconstruction. Individualized dose optimization techniques were used for this CT. COMPARISON: Chest x-ray dated November 01, 2021 FINDINGS: Mild posterior pleural thickening with interstitial thickening and edema of the bilateral lower lobes likely due to pneumonitis/inflammation. No focal consolidation is present. No nodules or masses are seen. No pleural effusion is present. Mild fibrotic scarring is also present in the lung bases. Normal trachea and bilateral mainstem bronchi. No pathologic lymphadenopathy is present. Normal enhancement of the main pulmonary artery and right and left pulmonary arteries. Normal enhancement of the bilateral peripheral pulmonary arteries. There is no demonstrated pulmonary embolism. Normal thoracic aorta and visualized great vessels. There is no demonstrated aortic dissection. Normal heart and pericardium. There are no demonstrated calcifications of the coronary arteries. Normal mediastinum. Normal hilar regions. Normal visualized trachea and bronchi. The lungs are well expanded. Normal chest wall structures. There are degenerative changes of thoracic spine. Unremarkable visualized upper abdomen. Modified hernia noted. CT/CTA Chest W/WO Contrast IMPRESSION: 1. Mild posterior pleural thickening with interstitial thickening and edema of the bilateral lower lobes likely due to pneumonitis/inflammation. No focal consolidation is present. No nodules or masses are seen. No pleural effusion is present. Mild fibrotic scarring is also present in the lung bases. Normal trachea and bilateral mainstem bronchi. No pathologic lymphadenopathy is present. 2. Negative CTA chest examination, without a demonstrated pulmonary embolism or arterial dissection. Electronically Signed: Shlomo Cason MD at 16:00 EDT ,
[2023-11-02 15:15] LABS: BNP,B-Type NATRIURETIC PEPTIDE 15.6 pg/mL (0-100)
[2023-11-02] MEDS: Lidocaine 2% Viscous15 ML UDC 15 ML PO (16:55)
[2023-11-02] MEDS: Mag /Aluminum/Simeth WCH UDC 30 ML ORAL.SUSP PO (16:55)
== END 2023-11-02 17:15 | disposition home or self-care (01) ==
PROVIDERS: Emergency Provider Emergency Medicine; PCP Student in an Organized Health Care Education/Training Program; Visit Provider Emergency Medicine
DX: R06.02 Shortness of breath (principal); K21.9 Gastro-esophageal reflux disease without esophagitis; I10 Essential (primary) hypertension; R05.9 Cough, unspecified; E78.00 Pure hypercholesterolemia, unspecified; Z98.51 Tubal ligation status; Z90.49 Acquired absence of other specified parts of digestive tract
CPT/HCPCS: 71046; 71275; 80048; 83880; 84443; 84484; 85025; 85379; 87631; 87651; 93005; 99283; Q9967; A4216